=== PATIENT | male | born 1965 | race Caucasian/White ===

== ENCOUNTER 2019-09-11 05:30 | Day surgery (SDC) | payer OTHER ==
[~2019-09-11] VITALS: Ht 175.3 cm; Wt 90.7 kg
[2019-09-11] MEDS ORDERED: NS IRRIG SOLN 1000 ML IR ONE (07:20)
[2019-09-11] MEDS ORDERED: MIDAZOLAM HCL 5 MG/5 ML VIAL IVP ONE (07:20)
[2019-09-11] MEDS ORDERED: LR 1,000 ML IV.SOLN IV ONE (07:20)
[2019-09-11] MEDS ORDERED: NEOSTIGMINE METHYLSULFATE 1 MG/ML, 10 ML VIAL IVP ONE (07:20)
[2019-09-11] MEDS ORDERED: NS 50 ML BAG IV ONE (07:20)
[2019-09-11] MEDS ORDERED: GLYCOPYRROLATE 0.2 MG/ML VIAL IJ ONE (07:20)
[2019-09-11] MEDS ORDERED: fentaNYL CITRATE/PF 100 MCG/2 ML AMP IVP ONE (07:20)
[2019-09-11] MEDS ORDERED: PROPOFOL 200MG/ 20ML VIAL (DIPRIVAN) IV ONE (07:20)
[2019-09-11] MEDS ORDERED: NS 250 ML IV.SOLN IV ONE (07:20)
[2019-09-11] MEDS ORDERED: SEVOFLURANE 15 MIN GAS INH ONE (07:20)
[2019-09-11] MEDS ORDERED: ROCURONIUM BROMIDE 10 MG/ML (ZEMURON) IV ONE (07:20)
[2019-09-11] MEDS ORDERED: CEFAZOLIN 2 GM IVPB PREMIX 50 ML IV ONE (07:20)
[2019-09-11] MEDS ORDERED: BUPIVACAINE /EPINEPHRINE/PF 0.5% 30 ML VIAL INJ ONE (07:20)
[2019-09-11] MEDS ORDERED: ONDANSETRON HCL 4 MG/2 ML VIAL IVP PRN (07:45)
[2019-09-11] MEDS ORDERED: KETOROLAC TROMETHAMINE 30 MG VIAL IVP PRN (07:45)
[2019-09-11] MEDS ORDERED: fentaNYL CITRATE/PF 100 MCG/2 ML AMP IVP PRN ×2 (07:45)
[2019-09-11] MEDS ORDERED: BUPIVACAINE LIPOSOME/PF 266 MG/20 ML VIAL INFIL ONE (08:09)
[2019-09-11] MEDS ORDERED: KETOROLAC TROMETHAMINE 30 MG VIAL ONE (10:00)
[2019-09-11 12:17] VITALS: BP_SYST 95
== END 2019-09-11 11:30 | disposition home or self-care (01) ==
LOC: SDS 05:30 → SMU 05:30 → EDSEX 07:30 → SDS 11:30
PROVIDERS: ATTEND Surgery
DX: K42.9 Umbilical hernia without obstruction or gangrene (principal); K66.0 Peritoneal adhesions (postprocedural) (postinfection); J45.909 Unspecified asthma, uncomplicated
CPT/HCPCS: 49587; C1781; C9290; J0690; J1885; J2250; J2704; J2710; J3010; J3490 ×2; J7050; J7120